=== PATIENT | female | born 1975 | race Caucasian/White ===

== ENCOUNTER 2017-12-01 07:36 | Emergency (ER) | payer OTHER ==
[~2017-12-01] VITALS: Ht 149.9 cm; Wt 84.8 kg
[~2017-12-01 07:36] MED LIST: ALBU0.0912 IH
[2017-12-01 07:46] VITALS: BP 108/66
--- NOTE | 2017-12-01 07:50 | NUR ---
PATIENT PRESENTS TO ED WITH C/O PRODUCTIVE COUGH WITH RHINORRHEA . DENIES N/V/D; SKIN IS PINK/WARM/DRY; AAOX4 WITH EVEN AND STEADY GAIT; LUNGS CLEAR BL; HR EVEN AND REGULAR; PT DENIES ANY FEVER, CP, SOB AT THIS TIME; PATIENT STATES PAIN OF 0/10 AT THIS TIME; VSS; PATIENT POSITIONED FOR COMFORT; HOB ELEVATED; BEDRAILS UP X2; BED DOWN. ER MD MADE AWARE OF PT STATUS.
[2017-12-01] MEDS ORDERED: ALBUTEROL SULFATE/IPRATROPIU 3 ML SOL IH ONE (08:10)
--- NOTE | 2017-12-01 08:35 | NUR ---
XRAY AT BEDSIDE.
--- NOTE | 2017-12-01 09:06 | NUR ---
Patient discharged with v/s stable. Written and verbal after care instructions given and explained. Patient alert, oriented and verbalized understanding of instructions. Ambulatory with steady gait. All questions addressed prior to discharge. ID band removed. Patient advised to follow up with PMD. Rx of ALBUTEROL AND TESSALON given. Patient educated on indication of medication including possible reaction and side effects. Opportunity to ask questions provided and answered.
[2017-12-01 09:07] VITALS: BP 127/74
== END 2017-12-01 09:06 | disposition home or self-care (01) ==
LOC: MED 07:36
DX: J40 Bronchitis, not specified as acute or chronic (principal); R06.2 Wheezing; I10 Essential (primary) hypertension; Z79.899 Other long term (current) drug therapy
CPT/HCPCS: 71045; 94640; 99283; J7620; Q0092

== ENCOUNTER 2018-01-28 05:51 | Day surgery (SDC) | payer OTHER ==
[~2018-01-28] VITALS: Ht 149.9 cm; Wt 81.6 kg
[2018-01-28] MEDS ORDERED: ONDANSETRON 4 MG/2 ML VIAL IVP PRN (07:45)
[2018-01-28] MEDS ORDERED: MORPHINE SULFATE 4 MG/ML SYR IM/IVP PRN (07:45)
[2018-01-28] MEDS ORDERED: ACETAMINOPHEN/CODEINE 300/30MG 1 TAB PO PRN (07:45)
[2018-01-28] MEDS ORDERED: IBUPROFEN 800 MG TAB PO PRN (07:45)
[2018-01-28] MEDS ORDERED: FERR-252 PO (08:02)
[2018-01-28] MEDS ORDERED: ONDANSETRON 4 MG/2 ML VIAL IVP ONE (09:11)
[2018-01-28] MEDS ORDERED: PROPOFOL 200 MG/20 ML VIAL IV ONE (09:11)
[2018-01-28] MEDS ORDERED: MIDAZOLAM 2 MG/2 ML VIAL ONE (09:16)
[2018-01-28] MEDS ORDERED: fentaNYL 0.05 MG/ML VIAL ONE (09:16)
[2018-01-28] MEDS ORDERED: MIDAZOLAM 2 MG/2 ML VIAL IV ONE ×2 (09:40)
[2018-01-28] MEDS ORDERED: MORPHINE SULFATE 2 MG/ML SYR IVP PRN (09:40)
[2018-01-28] MEDS ORDERED: MORPHINE SULFATE 4 MG/ML SYR IVP PRN ×5 (09:40)
== END 2018-01-28 12:10 | disposition home or self-care (01) ==
LOC: MDS 05:51 → MMU 06:00 → MDS 12:10
PROVIDERS: ATTEND Obstetrics & Gynecology
DX: N92.1 Excessive and frequent menstruation with irregular cycle (principal); Z88.0 Allergy status to penicillin; Z98.51 Tubal ligation status
CPT/HCPCS: 58120; 71045; 88305; J2250; J2270; J2405; J2704; J3010; J7120; Q0092

== ENCOUNTER 2020-01-12 17:50 | Emergency (ER) | payer BC, OTHER ==
[~2020-01-12] VITALS: Ht 149.9 cm; Wt 80.3 kg
[~2020-01-12 17:50] MED LIST changes: -ALBU0.0912 IH; +FERR-252 PO
[2020-01-12 17:52] VITALS: BP 103/66
--- NOTE | 2020-01-12 18:07 | NUR ---
44 YO F C/C OF HAVING AN ANXIETY ATTACK 20 MIN AGO. PT STATES THAT SHE EXPERIENCED NUMBNESS IN BILATERAL UPPER EXTREMETIES AND SOB THAT CAME OUT OF NO WHERE. SAYS SHE WAS EXPERIENCING COLD SWEATS AND 10/10 VAGINAL, SUPRAPUBIC PAIN. SHE STATES SHE HAD A PARTIAL HYSTERECTOMY ON 12/28/19 AND SAYS SHE THINKS THE PAIN CAUSED HER ANXIETY. SHE FELL ON THE FLOOR BUT DID NOT LOOSE CONSCIOUSNESS. PT SITTING IN CHAIR. ALLERGIES TO PENICILLIN MED HX: HYSTERECTOMY NO RX
[2020-01-12 18:11] VITALS: BP 103/66
--- NOTE | 2020-01-12 18:15 | NUR ---
DOCTOR AT BEDSIDE TO ASSESS PT
--- NOTE | 2020-01-12 18:32 | NUR ---
DPatient discharged with v/s stable. Written and verbal after care instructions given and explained. Patient alert, oriented and verbalized understanding of instructions. Ambulatory with steady gait. All questions addressed prior to discharge. ID band removed. Patient advised to follow up with PMD. Rx of MIRALAX given. Patient educated on indication of medication including possible reaction and side effects. Opportunity to ask questions provided and answered.
== END 2020-01-12 18:32 | disposition home or self-care (01) ==
LOC: MED 17:50
DX: F41.0 Panic disorder [episodic paroxysmal anxiety] (principal); R20.2 Paresthesia of skin; I10 Essential (primary) hypertension; Z88.0 Allergy status to penicillin; Z79.899 Other long term (current) drug therapy; Z90.710 Acquired absence of both cervix and uterus
CPT/HCPCS: 93005; 99283